=== PATIENT | male | born 1970 | race Caucasian/White ===

== ENCOUNTER 2021-02-11 16:59 | Emergency (ER) | payer MEDICAID ==
[~2021-02-11] VITALS: Ht 180.3 cm; Wt 84.1 kg
[2021-02-11] MEDS ORDERED: ondansetron/PF 4mg/2ml inj IV ONE (19:10)
[2021-02-11] MEDS ORDERED: etomidate 2mg/ml inj. IV ONE (19:10)
[2021-02-11] MEDS ORDERED: fentaNYL/PF 50MCG/1 ML 2ML syringe IV ONE (19:10)
[2021-02-11] MEDS ORDERED: diazepam inj 5 MG/ML inj. IV ONE (19:10)
[2021-02-11] MEDS ORDERED: HYDR-3965 PO (19:46)
[2021-02-11 20:16] VITALS: BP 115/60
== END 2021-02-11 20:18 | disposition home or self-care (01) ==
LOC: ER 17:00
DX: S43.101A Unspecified dislocation of right acromioclavicular joint, initial encounter (principal); V29.9XXA Motorcycle rider (driver) (passenger) injured in unspecified traffic accident, initial encounter; Y93.89 Activity, other specified; Y92.89 Other specified places as the place of occurrence of the external cause; Y99.8 Other external cause status
CPT/HCPCS: 29105; 73030; 96374; 96375; 99284; J2405; J3010